=== PATIENT | male | born 2005 | race Caucasian/White ===

== ENCOUNTER 2024-02-20 09:46 | Emergency (ER) | payer OTHER, SELFPAY ==
[2024-02-20] MEDS ORDERED: Ondansetron ODT 4 MG TAB ONE (11:01)
== END 2024-02-20 11:09 | disposition home or self-care (01) ==
LOC: ERS 09:46
DX: S71.151A Open bite, right thigh, initial encounter (principal); R11.0 Nausea; F17.210 Nicotine dependence, cigarettes, uncomplicated; F17.290 Nicotine dependence, other tobacco product, uncomplicated; W55.51XA Bitten by raccoon, initial encounter; Y93.89 Activity, other specified
CPT/HCPCS: 99282; Q0162